=== PATIENT | female | born 2000 ===

== ENCOUNTER → 2021-01-06 | Outpatient (CLI) | payer OTHER | END | disposition home or self-care (01) | LOC: PRENATAL 10:37 | PROVIDERS: ATTEND Obstetrics & Gynecology Maternal & Fetal Medicine | DX: O35.0XX1 Maternal care for (suspected) central nervous system malformation in fetus, fetus 1 (principal); O35.3XX1 Maternal care for (suspected) damage to fetus from viral disease in mother, fetus 1; O98.512 Other viral diseases complicating pregnancy, second trimester; Z36.89 Encounter for other specified antenatal screening; Z3A.21 21 weeks gestation of pregnancy ==

== ENCOUNTER 2021-04-18 15:19 | Outpatient (CLI) | payer OTHER | END 2021-04-18 16:04 | disposition home or self-care (01) | LOC: PRENATAL 15:19 | PROVIDERS: ATTEND Obstetrics & Gynecology Maternal & Fetal Medicine | DX: O26.843 Uterine size-date discrepancy, third trimester (principal); O36.8131 Decreased fetal movements, third trimester, fetus 1; O35.0XX1 Maternal care for (suspected) central nervous system malformation in fetus, fetus 1; Z36.89 Encounter for other specified antenatal screening; Z3A.36 36 weeks gestation of pregnancy ==

== ENCOUNTER 2021-05-03 16:04 | Inpatient (IN) | payer OTHER ==
[~2021-05-03] VITALS: Ht 167.6 cm; Wt 72.6 kg
[2021-05-03] MEDS ORDERED: PRENATAL TABLE1 EAC1 PO (16:41)
== END 2021-05-07 14:56 | disposition home or self-care (01) | DRG 832 ==
LOC: OBS/DEL 16:04 → NST 16:04 → OBS/DEL 17:57 → LDR 05-04 17:25 → OB/GYN 05-04 17:25 → OBS/DEL 05-04 17:25 → OB/GYN 05-04 17:55 → LDR 05-04 18:31 → OB/GYN 05-04 19:33
PROVIDERS: ADMIT Obstetrics & Gynecology Obstetrics; ATTEND Obstetrics & Gynecology Obstetrics
PROC: BY4FZZZ Ultrasonography of Third Trimester, Single Fetus (ICD-10-PCS; principal; 2021-05-04)
PROC: 4A1HXFZ Monitoring of Products of Conception, Cardiac Rhythm, External Approach (ICD-10-PCS; 2021-05-04)
DX: O23.43 Unspecified infection of urinary tract in pregnancy, third trimester (principal); N39.0 Urinary tract infection, site not specified; Z3A.38 38 weeks gestation of pregnancy

== ENCOUNTER 2021-05-14 03:16 | Inpatient (IN) | payer OTHER ==
[~2021-05-14] VITALS: Ht 167.6 cm; Wt 73.0 kg
[~2021-05-14 03:16] MED LIST: PRENATAL TABLE1 EAC1 PO
== END 2021-05-16 13:08 | disposition home or self-care (01) | DRG 807 ==
LOC: LDR 03:16 → OB/GYN 18:55
PROVIDERS: ADMIT Obstetrics & Gynecology Obstetrics; ATTEND Obstetrics & Gynecology Obstetrics
PROC: 10E0XZZ Delivery of Products of Conception, External Approach (ICD-10-PCS; principal; 2021-05-14)
PROC: 10907ZC Drainage of Amniotic Fluid, Therapeutic from Products of Conception, Via Natural or Artificial Opening (ICD-10-PCS; 2021-05-14)
PROC: 4A1HXFZ Monitoring of Products of Conception, Cardiac Rhythm, External Approach (ICD-10-PCS; 2021-05-14)
DX: O80 Encounter for full-term uncomplicated delivery (principal); Z37.0 Single live birth; Z3A.39 39 weeks gestation of pregnancy